=== PATIENT | male | born 1950 | race Caucasian/White ===

== ENCOUNTER 2017-08-27 18:59 | Emergency (ER) | payer OTHER ==
[2017-08-27 19:00] VITALS: TEMP 36.7
[2017-08-27 19:22] VITALS: O2SAT 96
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
[2017-08-27 20:12] LABS: MEAN CORPUSCULAR HGB CONC 34.9 g/dl (32-36); MEAN PLATELET VOLUME 9.7 fL (7.4-10.4); PLATELET COUNT 171 K/uL (130-400)
[2017-08-27 20:27] LABS: ISTAT IONIZED CALCIUM 1.2 mmol/l (1.12-1.32); ISTAT POTASSIUM 4.3 mEq/L (3.3-5.0)
[2017-08-27 20:33] LABS: ALBUMIN 3.5 gm/dl (3.4-5.0); ALT/SGPT 81 U/L (12-78); BLOOD UREA NITROGEN 17 mg/dl (7-18); CALCIUM 8.9 mg/dl (8.5-10.1); CARBON DIOXIDE 23 mmol/L (21-32); CREATININE 0.99 mg/dl (0.60-1.40); GLUCOSE 86 mg/dl (70-99); LIPASE 88 U/L (73-393); POTASSIUM 4.4 mmol/L (3.5-5.1); SODIUM 140 mmol/L (136-145)
[2017-08-27 20:38] LABS: ALKALINE PHOSPHATASE 72 U/L (45-117); AST/SGOT 31 U/L (15-37); TOTAL PROTEIN 6.3 gm/dl (6.4-8.2)
[2017-08-27] MEDS ORDERED: OPTIRAY 320 IV PRN (20:45)
--- NOTE | 2017-08-27 20:51 | DIAGNOSTIC IMAGING REPORT ---
ABD/PELVIS IV CONTRAST ONLY CLINICAL HISTORY: 46 years-old Male presenting with L sided flank/ab pain, no trauma/dysuria, prior appy. TECHNIQUE: Multidetector CT of the abdomen and pelvis was performed after the administration of intravenous contrast. IV contrast: 93 mL of Optiray 320. A dose lowering technique was used consistent with the principles of ALARA (as low as reasonably achievable). COMPARISON: None. CT DOSE (mGy.cm): The estimated cumulative dose is 292.56 mGy.cm. FINDINGS: Complaint Operator topogram: Unremarkable. Lung bases: Minimal basilar opacities, likely atelectasis. Normal heart size. No pericardial or pleural effusion. Liver: Normal morphology. Suspicious lesion in the left hepatic lobe (series 3 image 71). Additional suspicious lesion in the periphery of the right hepatic lobe (series 3 image 109). Patent hepatic vasculature. Biliary: No intrahepatic or extrahepatic biliary ductal dilatation. Normal gallbladder. Pancreas: Normal. Spleen: Normal. Multiple splenule is noted. Adrenal glands: Normal. Kidneys and ureters: Well-defined hypodensity in the right kidney likely simple cyst. No nephrolithiasis. No hydronephrosis. Ureters mildly prominent. No ureteral calculi or significant urothelial thickening. Bladder: Distended bladder. Pelvic organs: Prostate enlargement likely secondary to benign prostatic hyperplasia. Bowel: Small hiatal hernia may be present. No bowel obstruction. No gross evidence of bowel wall thickening. Nonvisualization of the appendix compatible with appendectomy. Peritoneal cavity: No free fluid or intraperitoneal gas. Lymph nodes: Pathologically enlarged lymph nodes in the abdomen and pelvis most prominently in the portacaval region with a node measuring 5.7 x 2.2 cm (series 3 image 132). Additional index node in the left periaortic region measuring 2.4 x 1.4 cm (series 3 image 139). Extensive retroperitoneal lymphadenopathy extending into the bilateral common, and external iliac, and inguinal regions. Vasculature: Atherosclerosis of the normal caliber abdominal aorta. IVC patent. Abdominal wall: Normal. Musculoskeletal: Degenerative changes of the spine. Bilateral pars defects of L5 with anterolisthesis of L5 on S1. No destructive osseous lesion. IMPRESSION: 1. No acute intra-abdominal pathology. 2. Significant abdominopelvic lymphadenopathy, which is highly suspicious for metastatic or lymphoproliferative disease. Left inguinal/external iliac lymphadenopathy may be amenable to nonemergent outpatient ultrasound-guided percutaneous biopsy. 3. Suspicious liver lesions also concerning for metastatic disease. The report will be called/faxed according to standard departmental protocol. Electronically signed by: Anjel Whiting M.D. 08/27/2017 8:50 PM Dictated Date/Time: 08/27/2017 8:43 PM
[2017-08-27 20:54] LABS: HEMATOCRIT 40.4 % (42-52); HEMOGLOBIN 14.1 g/dL (14.0-18.0); MEAN CELL VOLUME 84.5 fL (80-100); MEAN CORPUSCULAR HEMOGLOBIN 29.5 pg (25-34); RED CELL DISTRIBUTION WIDTH CV 13.1 % (11.5-14.5); RED CELL DISTRIBUTION WIDTH SD 39.5 fL (36.4-46.3); WHITE BLOOD COUNT 27.08 K/uL (4.8-10.8)
--- NOTE | 2017-08-27 23:08 | DIAGNOSTIC IMAGING REPORT ---
CHEST ONE VIEW PORTABLE CLINICAL HISTORY: 66 years-old Male presenting with sob. TECHNIQUE: Portable upright AP view of the chest was obtained. COMPARISON: None. FINDINGS: Atherosclerosis of aortic arch. Cardiac silhouette enlarged. No focal opacity. No large effusion or pneumothorax. Osseous structures normal. Upper abdomen normal. IMPRESSION: 1. No acute cardiopulmonary disease. Electronically signed by: Anjel Whiting M.D. 08/27/2017 11:07 PM Dictated Date/Time: 08/27/2017 11:06 PM
[2017-08-27 23:22] VITALS: BP 142/90; PULSE 65; O2SAT 95
== END 2017-08-28 00:05 | disposition home or self-care (01) ==
LOC: C.EDB 19:01 → EDBD 19:01 → C.EDB 08-28 00:05
DX: Z71.1 Person with feared health complaint in whom no diagnosis is made (principal); R10.12 Left upper quadrant pain